=== PATIENT | male | born 1970 | race Caucasian/White ===

== ENCOUNTER 2017-03-19 09:40 | Inpatient (IN) | payer OTHER ==
[2017-03-19 11:16] VITALS: BMI 29.5
--- NOTE | 2017-03-19 14:33 | HP ---
Admission [facility] Chief Complaint: i am here for rehab from crack,marijuana Allergies/Adverse Reactions: Allergies Allergy/AdvReac Type Severity Reaction Status Date / Time No Known Allergies Allergy Verified 11/22/11 19:35 History of Present Illness: this 46 years old male with cocaine and marijuana dependence,seeking rehab,last treatment [facility] 01/18 for 1 day hypothyroidism s/p thyroidectomy in 2016 s/p traumatic amputation of tip of right middle and ring finger longest periof of sobriety 4 years Exam Limitations: No Limitations - Ebola screening Have you traveled outside of the country in the last 21 days: No Have you been sick,other than usual withdrawal symptoms: No - Review of Systems Constitutional: No Symptoms Reported EENT: reports: No Symptoms Reported, Other (scar of neck) Respiratory: reports: No Symptoms reported Cardiac: reports: No Symptoms Reported GI: reports: No Symptoms Reported : reports: No Symptoms Reported Musculoskeletal: reports: No Symptoms Reported Integumentary: reports: No Symptoms Reported, Other (traumatic amputation of righ tmiddle finger and right ring finger at age of 1 years) Neuro: reports: No Symptoms reported Endocrine: reports: No Symptoms Reported Hematology: reports: No Symptoms Reported, Other (hiv) Psychiatric: reports: No Sypmtoms Reported, Judgement Intact, Mood/Affect Appropiate, Orientated x3 Other Systems: Reviewed and Negative Patient History - Patient Medical History Hx Anemia: No Hx Asthma: Yes (Pt is on Albuterol Inhaler.) Hx Chronic Obstructive Pulmonary Disease (COPD): No Hx Cancer: No Hx Cardiac Disorders: No Hx Congestive Heart Failure: No Hx Hypertension: No Hx Hypercholesterolemia: No Hx Pacemaker: No HX Cerebrovascular Accident: No Hx Seizures: No Hx Dementia: No Hx Diabetes: No Hx Gastrointestinal Disorders: No Hx Liver Disease: No Hx Genitourinary Disorders: No Hx Sexually Transmitted Disorders: Yes (HIV+ since 2000) Hx Renal Disease (ESRD): No Hx Thyroid Disease: No Hx Human Immunodeficiency Virus (HIV): Yes Hx Hepatitis C: No Hx Depression: No Hx Suicide Attempt: No Hx Bipolar Disorder: No Hx Schizophrenia: No Other Medical History: no suicidal,no homicidal - Patient Surgical History Past Surgical History: Yes Hx Neurologic Surgery: No Hx Cataract Extraction: No Hx Cardiac Surgery: No Hx Lung Surgery: No Hx Breast Surgery: No Hx Breast Biopsy: No Hx Abdominal Surgery: No Hx Appendectomy: No Hx Cholecystectomy: No Hx Genitourinary Surgery: No Hx Section: No Hx Orthopedic Surgery: No Other Surgical History: tonsillectoy at age of [age] years old,trumatic amputation tips of rt.middle,r - PPD History Previous Implant?: Yes Documented Results: Negative w/o proof PPD to be Administered?: Yes - Smoking Cessation Smoking history: Never smoked Hx Chewing Tobacco Use: No - Substance & Tx. History Hx Alcohol Use: No Substance Use Type: Cocaine, Marijuana Family Disease History - Family Disease History Family Disease History: Other: Father (alcohol), Mother (dsa) Admission Physical Exam [facility] - Vital Signs Vital Signs: Vital Signs - 24 hr 03/19/17 11:14 Temperature 96.4 F L Pulse Rate 71 Respiratory 20 Rate Blood Pressure 110/69 - Physical General Appearance: Yes: Within Normal Limits HEENTM: Yes: Normal ENT Inspection, SAMANTHA, Pharynx Normal, Other (scar of neck s/ p thyroidectomy) Neck: Yes: Within Normal Limits, Supple, Trachea in good position, Other (scar in midline) Breast: Yes: Within Normal Limits Cardiology: Yes: Within Normal Limits, Regular Rhythm, Regular Rate, S1, S2 Abdominal: Yes: Within Normal Limits, Normal Bowel Sounds, Non Tender, Flat, Soft Genitourinary: Yes: Within Normal Limits Back: Yes: Within Normal Limits Musculoskeletal: Yes: Within Normal Limits Extremities: Yes: Within Normal Limits, Other (s/p traumatic amputation tip of right middle and ring finger) Neurological: Yes: construction project manager II-XII NML intact, Fully Oriented, Alert, Motor Strength 5/5 Integumentary: Yes: Within Normal Limits - Diagnostic (1) Cocaine dependence Current Visit: No Status: Active (2) Cannabis dependence Current Visit: Yes Status: Acute (3) Hypothyroidism Current Visit: Yes Status: Acute (4) Asthma Current Visit: Yes Status: Acute (5) Amputation of right middle finger Current Visit: Yes Status: Acute (6) HIV (human immunodeficiency virus infection) Current Visit: Yes Status: Acute (7) History of thyroidectomy Current Visit: Yes Status: Acute Cleared for Admission [facility] - Detox or Rehab Claeared for Rehab Admission: Yes [facility] Breath Alcohol Content Breath Alcohol Content: 0 Urine Drug Screen - Results Drug Screen Negative: No Urine Drug Screen Results: THC-Marijuana, SHOAIB-Cocaine Inpatient Rehab Admission - Initial Determination Are CD services needed?: Yes Free of communicable disease: Yes Not in need of hospitalization: Yes - Rehab Admission Criteria Poor recovery environment: Yes Comorbidities: Yes Patient is meeting Inpatient Rehab admission criteria:: Yes
[2017-03-19] MEDS ORDERED: LOPERAMIDE HCL 2 MG CAPSULE PO PRN (15:00)
[2017-03-19] MEDS ORDERED: MENTHOL/PHENOL 1 EACH UD MM PRN (15:00)
[2017-03-19] MEDS ORDERED: MAGNESIUM HYDROX 2400MG/30ML ORAL SUSPENSION 30 ML CUP PO PRN (15:00)
[2017-03-19] MEDS ORDERED: MAG HYDROX/AL HYDROX/SIMETH 30 ML UNIT-DOSE CUP PO PRN (15:00)
[2017-03-19] MEDS ORDERED: hydrOXYzine PAMOATE 25 MG CAPSULE (FP) PO PRN (15:00)
[2017-03-19] MEDS ORDERED: P-EPHED 60MG/TRIPROLIDI 2.5MG TABLET PO PRN (15:00)
[2017-03-19] MEDS ORDERED: MAGNESIUM CITRATE 300 ML BOTTLE PO PRN (15:00)
[2017-03-19] MEDS ORDERED: ACETAMINOPHEN 325 MG TABLET (FP) PO PRN (15:00)
[2017-03-19] MEDS ORDERED: ALBUTEROL SO4 18 GM HFA INHALER IH PRN (15:02)
[2017-03-19] MEDS: THIAMINE HCL 100 MG TABLET (FP) PO SCH (21:22)
[2017-03-19] MEDS: diphenhydrAMINE HCL 50 MG CAPSULE PO PRN (21:22)
[2017-03-20 01:03] LABS: URINE APPEARANCE CLEAR; URINE BILIRUBIN NEGATIVE (NEGATIVE); URINE BLOOD NEGATIVE (NEGATIVE); URINE COLOR YELLOW; URINE GLUCOSE (UA) NEGATIVE (NEGATIVE); URINE KETONE NEGATIVE (NEGATIVE); URINE NITRITE NEGATIVE (NEGATIVE); URINE PROTEIN NEGATIVE (NEGATIVE); URINE UROBILINOGEN NEGATIVE mg/dL (0.2-1.0)
[2017-03-20] MEDS ORDERED: LEVOTHYROXINE NA 25 MCG TABLET (FP) ONE (06:04)
[2017-03-20] MEDS ORDERED: LEVOTHYROXINE NA 100 MCG TABLET (FP) ONE (06:05)
[2017-03-20] MEDS: LEVOTHYROXINE 100 MCG, LEVOTHYROXINE 75 MCG PO SCH (06:42)
[2017-03-20 09:43] LABS: URINE LEUK ESTERASE Negative (NEGATIVE)
[2017-03-20 09:49] LABS: MCH 29.3 pg (25.7-33.7); MCHC 32.8 g/dl (32.0-35.9); MEAN CELL VOLUME 89.3 fl (80-96); MEAN PLT VOLUME 9.3 fl (7.5-11.1); PLATELET COUNT 323 K/MM3 (134-434); RDW 14.3 % (11.9-15.9); WHITE BLOOD COUNT 6.3 K/mm3 (4.0-10.0)
[2017-03-20] MEDS: PRENATAL VITAMINS W/ FOLIC ACID TABLET (FP) PO SCH (09:51)
[2017-03-20] MEDS ORDERED: LEVOTHYROXINE NA 175 MCG TABLET PO SCH (10:00)
--- NOTE | 2017-03-20 10:19 | HP ---
Psychiatrist Admission - Data Date of interview: 03/20/17 Admission source: [facility] Medical History: HIV since 2000, hypothyroidism, and S/P thyroidectomy 2016, Asthma and S/P amputation of tip of RT middle and ring finger. Smokes cigaretts 10 a day. Psychiatric History: Patient reports distant history of depression, reports he feels "fine now, just want to rest, I am tired". No history of psychiatric hospitalizations. Physical/Sexual Abuse/Trauma History: Denies history of abuse. Vital Signs: Vital Signs - 24 hr 03/19/17 03/19/17 03/20/17 11:14 17:59 00:45 Temperature 96.4 F L 98.1 F Pulse Rate 71 90 Respiratory 20 18 16 Rate Blood Pressure 110/69 107/67 03/20/17 07:15 Temperature 98.2 F Pulse Rate 74 Respiratory 18 Rate Blood Pressure 105/60 Allergies/Adverse Reactions: Allergies Allergy/AdvReac Type Severity Reaction Status Date / Time No Known Allergies Allergy Verified 03/19/17 14:30 Date of last physical exam: 03/19/17 Concur with the findings of this exam: Yes - Substance Abuse/Tx History Hx Alcohol Use: No Hx Substance Use: Yes Substance Use Type: Cocaine ($50 daily ), Marijuana ("sometimes") Hx Substance Use Treatment: Yes ([facility] "long time ago") Mental Status Exam - Mental Status Exam Alert and Oriented to: Time, Place, Person Cognitive Function: Grossly Intact Patient Appearance: Disheveled Mood: Angry, Irritable Patient Behavior: Appropriate, Cooperative Speech Pattern: Clear, Appropriate Voice Loudness: Normal Thought Process: Goal Oriented Thought Disorder: Not Present Hallucinations: Denies Suicidal Ideation: Denies Homicidal Ideation: Denies Insight/Judgement: Fair Sleep: Fair Appetite: Fair Muscle strength/Tone: Normal Gait/Station: Normal Psychiatric Findings - Problem List ([place] 1, 2,3) (1) Amputation of right middle finger Current Visit: Yes Status: Acute (2) Asthma Current Visit: Yes Status: Acute (3) Cannabis dependence Current Visit: Yes Status: Acute (4) HIV (human immunodeficiency virus infection) Current Visit: Yes Status: Acute (5) Cocaine dependence Current Visit: No Status: Active - Initial Treatment Plan Initial Treatment Plan: will monitor progress as needed.
[2017-03-20 10:28] LABS: ALBUMIN 3.8 g/dl (3.4-5.0); ALK PHOS 90 U/L (45-117); ANION GAP 7 (8-16); BILIRUBIN,TOTAL 0.4 mg/dL (0.2-1.0); CALCIUM 8.4 mg/dL (8.5-10.1); CO2 28 mmol/L (21-32); CREATININE 1.2 mg/dL (0.7-1.3); GLUCOSE,RANDOM 87 mg/dL (74-106); SGOT/AST 27 U/L (15-37); SGPT/ALT 27 U/L (12-78)
[2017-03-20] MEDS: THIAMINE HCL 100 MG TABLET (FP) PO SCH (21:15)
[2017-03-21] MEDS ORDERED: LEVOTHYROXINE NA 25 MCG TABLET (FP) ONE (06:07)
[2017-03-21] MEDS ORDERED: LEVOTHYROXINE NA 100 MCG TABLET (FP) ONE (06:08)
[2017-03-21] MEDS: LEVOTHYROXINE 100 MCG, LEVOTHYROXINE 75 MCG PO SCH (06:24)
[2017-03-21] MEDS: PRENATAL VITAMINS W/ FOLIC ACID TABLET (FP) PO SCH (10:14)
--- NOTE | 2017-03-21 11:58 | EKG ---
Test Reason : Blood Pressure : / mmHG Vent. Rate : 067 BPM Atrial Rate : 067 BPM P-R Int : 148 ms QRS Dur : 088 ms QT Int : 398 ms P-R-T Axes : 069 032 043 degrees QTc Int : 420 ms NORMAL SINUS RHYTHM SEPTAL INFARCT , AGE UNDETERMINED ABNORMAL ECG NO PREVIOUS ECGS AVAILABLE Confirmed by LYDIA DOMINGO MD ([id number]) on 03/21/2017 11:58:00 AM Referred By: Confirmed By:LYDIA DOMINGO MD
[2017-03-21] MEDS: THIAMINE HCL 100 MG TABLET (FP) PO SCH (21:22)
[2017-03-22] MEDS ORDERED: LEVOTHYROXINE NA 25 MCG TABLET (FP) ONE (02:42)
[2017-03-22] MEDS ORDERED: LEVOTHYROXINE NA 100 MCG TABLET (FP) ONE (02:43)
[2017-03-22] MEDS: LEVOTHYROXINE 100 MCG, LEVOTHYROXINE 75 MCG PO SCH (06:09)
[2017-03-22] MEDS: PRENATAL VITAMINS W/ FOLIC ACID TABLET (FP) PO SCH (09:49)
[2017-03-22] MEDS: guaiFENesin/D-METHORPHAN HB 10 ML UNIT-DOSE CUPS PO PRN (10:26)
--- NOTE | 2017-03-22 12:44 | PN ---
[facility] Progress Note Note: co skin changes 2/2 tho derm will add keto cream indications for fu reviewed
[2017-03-22] MEDS: KETOCONAZOLE 2% CREAM - 60GM TUBE TP SCH (14:30)
[2017-03-22] MEDS: THIAMINE HCL 100 MG TABLET (FP) PO SCH (23:06)
[2017-03-23] MEDS ORDERED: LEVOTHYROXINE NA 100 MCG TABLET (FP) ONE (04:07)
[2017-03-23] MEDS ORDERED: LEVOTHYROXINE NA 25 MCG TABLET (FP) ONE (04:07)
[2017-03-23] MEDS: LEVOTHYROXINE 100 MCG, LEVOTHYROXINE 75 MCG PO SCH (06:06)
[2017-03-23] MEDS: KETOCONAZOLE 2% CREAM - 60GM TUBE TP SCH (10:17)
[2017-03-23] MEDS: PRENATAL VITAMINS W/ FOLIC ACID TABLET (FP) PO SCH (10:17)
[2017-03-23] MEDS: IBUPROFEN 400 MG TABLET (FP) PO PRN ×2 (10:19→21:28)
[2017-03-23] MEDS: diphenhydrAMINE HCL 50 MG CAPSULE PO PRN (21:27)
[2017-03-23] MEDS: THIAMINE HCL 100 MG TABLET (FP) PO SCH (21:27)
[2017-03-24] MEDS ORDERED: LEVOTHYROXINE NA 100 MCG TABLET (FP) ONE (03:38)
[2017-03-24] MEDS ORDERED: LEVOTHYROXINE NA 25 MCG TABLET (FP) ONE (03:38)
[2017-03-24] MEDS: LEVOTHYROXINE 100 MCG, LEVOTHYROXINE 75 MCG PO SCH (06:14)
[2017-03-24] MEDS: PRENATAL VITAMINS W/ FOLIC ACID TABLET (FP) PO SCH (09:49)
[2017-03-24] MEDS: KETOCONAZOLE 2% CREAM - 60GM TUBE TP SCH (09:50)
[2017-03-24] MEDS: THIAMINE HCL 100 MG TABLET (FP) PO SCH (21:06)
[2017-03-24] MEDS: diphenhydrAMINE HCL 50 MG CAPSULE PO PRN (21:06)
[2017-03-25] MEDS ORDERED: LEVOTHYROXINE NA 25 MCG TABLET (FP) ONE (03:37)
[2017-03-25] MEDS ORDERED: LEVOTHYROXINE NA 100 MCG TABLET (FP) ONE (03:37)
[2017-03-25] MEDS: LEVOTHYROXINE 100 MCG, LEVOTHYROXINE 75 MCG PO SCH (06:13)
[2017-03-25] MEDS: KETOCONAZOLE 2% CREAM - 60GM TUBE TP SCH (10:12)
[2017-03-25] MEDS: PRENATAL VITAMINS W/ FOLIC ACID TABLET (FP) PO SCH (10:12)
[2017-03-25] MEDS: IBUPROFEN 400 MG TABLET (FP) PO PRN ×2 (10:13→21:19)
[2017-03-25] MEDS: diphenhydrAMINE HCL 50 MG CAPSULE PO PRN (21:19)
[2017-03-25] MEDS: THIAMINE HCL 100 MG TABLET (FP) PO SCH (21:19)
[2017-03-25] MEDS: guaiFENesin/D-METHORPHAN HB 10 ML UNIT-DOSE CUPS PO PRN (23:31)
[2017-03-26] MEDS ORDERED: LEVOTHYROXINE NA 25 MCG TABLET (FP) ONE (03:11)
[2017-03-26] MEDS ORDERED: LEVOTHYROXINE NA 100 MCG TABLET (FP) ONE (03:11)
[2017-03-26] MEDS: LEVOTHYROXINE 100 MCG, LEVOTHYROXINE 75 MCG PO SCH (06:32)
[2017-03-26] MEDS: IBUPROFEN 400 MG TABLET (FP) PO PRN ×2 (10:04→21:18)
[2017-03-26] MEDS: PRENATAL VITAMINS W/ FOLIC ACID TABLET (FP) PO SCH (10:05)
[2017-03-26] MEDS: KETOCONAZOLE 2% CREAM - 60GM TUBE TP SCH (10:05)
[2017-03-26] MEDS: THIAMINE HCL 100 MG TABLET (FP) PO SCH (21:18)
[2017-03-26] MEDS: diphenhydrAMINE HCL 50 MG CAPSULE PO PRN (21:18)
[2017-03-27] MEDS ORDERED: LEVOTHYROXINE NA 25 MCG TABLET (FP) ONE (03:12)
[2017-03-27] MEDS ORDERED: LEVOTHYROXINE NA 100 MCG TABLET (FP) ONE (03:13)
[2017-03-27] MEDS: LEVOTHYROXINE 100 MCG, LEVOTHYROXINE 75 MCG PO SCH (06:10)
[2017-03-27 06:48] VITALS: TEMP 98.4
[2017-03-27] MEDS: PRENATAL VITAMINS W/ FOLIC ACID TABLET (FP) PO SCH (10:15)
[2017-03-27] MEDS: IBUPROFEN 400 MG TABLET (FP) PO PRN (10:15)
[2017-03-27] MEDS: KETOCONAZOLE 2% CREAM - 60GM TUBE TP SCH (10:16)
[2017-03-27 11:33] VITALS: BP 131/72; PULSE 97
--- NOTE | 2017-03-27 15:45 | PN ---
Psychiatric Progress Note Vital Signs: Vital Signs Period Temp Pulse Resp BP Sys/[place]ci[place] Pulse Ox Last 24 Hr 98.4 F 77-97 18-18 110-131/72-77 Date of Session: 03/27/17 Chief Complaint:: discharge HPI: Patient addressed cocaine,cannabis dependence. ROS: Asthma, HIV+ medically managed. Current Medications: Active Medications Generic Name Dose Route Start Last Admin Trade Name Freq PRN Reason Stop Dose Admin Acetaminophen 650 mg 03/19/17 15:00 03/23/17 06:08 Tylenol - PO 650 mg Q4H PRN Administration PAIN Al Hydroxide/Mg Hydroxide 30 ml 03/19/17 15:00 Mylanta Oral Suspension - PO Q6H PRN DYSPEPSIA Albuterol Sulfate 2 puff 03/19/17 15:02 03/26/17 14:58 Ventolin Hfa Inhaler - IH 2 puff Q4H PRN Administration ASTHMA Diphenhydramine HCl 50 mg 03/19/17 15:00 03/26/17 21:18 Benadryl - PO 50 mg HSMR1 PRN Administration INSOMNIA Eucalyptus/Menthol/Phenol/Sorbitol 1 each 03/19/17 15:00 Cepastat Lozenge - MM Q4H PRN SORE THROAT Guaifenesin 10 ml 03/19/17 15:00 03/25/17 23:31 Robitussin Dm - PO 10 ml Q6H PRN Administration COUGH Hydroxyzine Pamoate 25 mg 03/19/17 15:00 Vistaril - PO Q4H PRN AGITATION Ibuprofen 400 mg 03/19/17 15:00 03/27/17 10:15 Motrin - PO 400 mg Q6H PRN Administration SEVERE PAIN Ketoconazole 1 applic 03/22/17 12:45 03/27/17 10:16 Nizoral 2% Cream - TP 1 applic DAILY ELIEZER Administration Levothyroxine Sodium 100 mcg/ 175 mcg 03/20/17 07:00 03/27/17 06:10 Levothyroxine Sodium 75 mcg PO 175 mcg DAILY@0700 ELIEZER Administration Loperamide HCl 4 mg 03/19/17 15:00 Imodium - PO Q6H PRN DIARRHEA Magnesium Citrate 300 ml 03/19/17 15:00 Citroma - PO Q48H PRN CONSTIPATION Magnesium Hydroxide 30 ml 03/19/17 15:00 Milk Of Magnesia - PO DAILY PRN CONSTIPATION Multivit/Folic Acid/Iron 1 tab 03/20/17 10:00 03/27/17 10:15 Vitamins (Sjr) - PO 1 tab DAILY ELIEZER Administration Pseudoephedrine/Triprolidine 1 combo 03/19/17 15:00 Actifed - PO TID PRN NASAL CONGESTION Thiamine HCl 100 mg 03/19/17 22:00 03/26/17 21:18 Vitamin B1 - PO 100 mg HS ELIEZER Administration Current Side Effect: No Lab tests ordered: No Lab tests reviewed: Yes Provider note:: Patient requested to be discharged today, he was adnitted on , he met his short term goals, will continue to address his isssues at the next level of care, patient was encouraged to continue maintain his sobriety, stable for discharge today. Total face to face time:: 15 Mental Status Exam - Mental Status Exam Alert and Oriented to: Time, Place, Person Cognitive Function: Grossly Intact Patient Appearance: Well Groomed Affect: Appropriate, Mood Congruent, Normal Range Patient Behavior: Appropriate, Cooperative Speech Pattern: Clear, Appropriate Voice Loudness: Normal Thought Process: Intact, Goal Oriented Thought Disorder: Not Present Hallucinations: Denies Suicidal Ideation: Denies Homicidal Ideation: Denies Insight/Judgement: Fair Sleep: Fair Appetite: Fair Muscle strength/Tone: Normal Gait/Station: Normal Psychiatric Treatment Plan - Problem List (1) Amputation of right middle finger Current Visit: Yes (2) Asthma Current Visit: Yes (3) Cannabis dependence Current Visit: Yes (4) HIV (human immunodeficiency virus infection) Current Visit: Yes (5) Cocaine dependence Current Visit: No
== END 2017-03-27 15:25 | disposition home or self-care (01) | DRG 772 ==
LOC: YASAS 09:40 → Y5N 16:22
PROVIDERS: ADMIT Psychiatry & Neurology Psychiatry; ATTEND Psychiatry & Neurology Psychiatry
PROC: HZ42ZZZ Group Counseling for Substance Abuse Treatment, Cognitive-Behavioral (ICD-10-PCS; principal; 2017-03-19)
DX: F14.20 Cocaine dependence, uncomplicated (principal); F12.20 Cannabis dependence, uncomplicated; F17.210 Nicotine dependence, cigarettes, uncomplicated; Z21 Asymptomatic human immunodeficiency virus [HIV] infection status; J45.909 Unspecified asthma, uncomplicated; E89.0 Postprocedural hypothyroidism; Z89.021 Acquired absence of right finger(s)
CPT/HCPCS: 36415; 71020-TC; 80053; 81003; 85027; 86593; 93005; 93010